=== PATIENT | female | born 1990 | race African-American/Black ===

== ENCOUNTER 2018-06-12 11:08 | Inpatient (IN) ==
[2018-06-12] MEDS ORDERED: Haloperidol Inj 5 MG/ML Ampul IM ONE (13:12)
[2018-06-12 13:49] LABS: Baso % (Auto) 0.6 % (0.0-2.0); Eos # (Auto) 0.1 th/mm3 (0.0-0.4); Eos % (Auto) 1.5 % (0.0-4.0); Hematocrit 46.9 % (35.0-46.0); Hemoglobin 15.5 gm/dL (11.6-15.3); Lymph # (Auto) 2.1 th/mm3 (1.0-4.8); Lymph % (Auto) 24.7 % (9.0-44.0); Mean Corpuscular Hemoglobin 30.1 pg (27.0-34.0); Mean Corpuscular Volume 91.2 fL (80.0-100.0); Mean Platelet Volume 9.4 fL (7.0-11.0); Mono # (Auto) 0.9 th/mm3 (0.0-0.9); Mono % (Auto) 10.9 % (0.0-8.0); Neut # (Auto) 5.3 th/mm3 (1.8-7.7); Neut % (Auto) 62.3 % (16.0-70.0); Platelet Count 294 th/mm3 (150-450); Red Blood Count 5.15 mil/mm3 (4.00-5.30); Red Cell Distribution Width 13.8 % (11.6-17.2); White Blood Count 8.6 th/mm3 (4.0-11.0)
[2018-06-12 14:03] LABS: Bilirubin,Urine Negative (Negative); Clarity,Urine Hazy (Clear); Color,Urine Yellow (Yellw/Straw); Glucose,Urine (UA) Negative (Negative); Leukocyte Esterase,Urine Negative (Negative); Mucus,Urine Many /lpf (Occasional); Nitrite,Urine Negative (Negative); Specific Gravity,Urine 1.023 (1.002-1.035); Squamous Epithelial Cell,Urine 1 /hpf (0-5)
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
[2018-06-12 14:45] LABS: Amphetamine Screen,Urine Neg (Neg)
[2018-06-12 14:46] LABS: Barbiturate Screen,Urine Neg (Neg); Cannabinoid Screen,Urine Pos (Neg); Cocaine Screen,Urine Neg (Neg); Opiate Screen,Urine Neg (Neg)
[2018-06-12 14:48] LABS: Anion Gap 10 meq/L (5-15); Blood Urea Nitrogen 5 mg/dL (7-18); Calcium 9.1 mg/dL (8.5-10.1); Carbon Dioxide 25.9 meq/L (21.0-32.0); Chloride 106 meq/L (98-107); Glomerular Filtration Rate Greater Than 89 mL/min (>89); Glucose,Random 85 mg/dL (74-106); Potassium 4.1 meq/L (3.5-5.1); Sodium 142 meq/L (136-145)
[2018-06-12 14:49] LABS: Alanine Aminotransferase 32 U/L (10-53); Albumin 4.8 g/dL (3.4-5.0); Alkaline Phosphatase 67 U/L (45-117); Aspartate Aminotransferase 26 U/L (15-37); Thyroid Stimulating Hormone 0.929 uIU/mL (0.358-3.740); Total Protein 8.4 g/dL (6.4-8.2)
[2018-06-12] MEDS ORDERED: Sod Chloride 0.9% Inj 1,000 ML IV.SIG ONE ×2 (15:03→15:04)
[2018-06-12 15:06] LABS: CKMB Percent 0.8 % (0.0-4.0); Creatine Kinase MB 2.6 ng/mL (0.5-3.6)
[2018-06-13] MEDS ORDERED: Haloperidol Inj 5 MG/ML Ampul IM ONE (02:27)
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
[2018-06-13] MEDS ORDERED: Aluminum/Magnesium/Simethacone Susp 30 ML UDC PO PRN (17:52)
[2018-06-13] MEDS ORDERED: LORazepam 1 MG Tablet PO PRN (17:52)
[2018-06-13] MEDS: Senna/Docusate Sodium 8.6/50 MG Tablet PO SCH (21:40)
[2018-06-14 07:44] LABS: Anion Gap 9 meq/L (5-15); Blood Urea Nitrogen 3 mg/dL (7-18); Calcium 8.5 mg/dL (8.5-10.1); Carbon Dioxide 26.3 meq/L (21.0-32.0); Chloride 106 meq/L (98-107); Glomerular Filtration Rate Greater Than 89 mL/min (>89); Glucose,Random 82 mg/dL (74-106); Potassium 3.4 meq/L (3.5-5.1); Sodium 141 meq/L (136-145)
[2018-06-14 07:53] LABS: Chol/HDL Ratio 2.28 Ratio; Cholesterol 97 mg/dL (120-200); HDL Cholesterol 42.5 mg/dL (40.0-60.0); LDL Cholesterol,Calculated 44 mg/dL (0-99); Triglycerides 52 mg/dL (42-150)
[2018-06-14] MEDS: Senna/Docusate Sodium 8.6/50 MG Tablet PO SCH (08:42)
[2018-06-14] MEDS ORDERED: Acetaminophen 325 MG Tablet PO PRN (12:17)
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
[2018-06-14 16:15] LABS: Hemoglobin A1c 4.9 % (4.3-6.0)
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
== END 2018-06-15 15:10 | disposition home or self-care (01) ==
LOC: NEPD 11:08 → NEDA 06-13 17:56 → H260 06-13 20:03
PROVIDERS: ADMIT Psychiatry & Neurology Psychiatry; ATTEND Psychiatry & Neurology Psychiatry